=== PATIENT | female | born 1990 | race Caucasian/White ===

== ENCOUNTER 2016-06-20 00:02 | Inpatient (IN) | payer BC ==
[2016-06-20] MEDS ORDERED: LIDOCAINE HCL 50 ML VIAL PERI PRN (00:04)
[2016-06-20] MEDS ORDERED: ONDANSETRON HCL/PF 2 MG/ML VIAL IV PRN ×4 (00:04→16:40)
[2016-06-20] MEDS ORDERED: RINGERS SOLUTION,LACTATED 1,000 ML IV ONE ×3 (00:04→15:59)
[2016-06-20] MEDS ORDERED: OXYTOCIN/DEXTROSE 5%-WATER 30 UNITS/500 ML BAG IV ONE (00:04)
[2016-06-20] MEDS ORDERED: DEXTROSE 5%-LACTATED RINGERS 1,000 ML IV PRN (00:04)
[2016-06-20] MEDS: RINGERS SOLUTION,LACTATED 1,000 ML IV PRN ×2 (00:47→11:27)
[2016-06-20] MEDS ORDERED: BUPIVACAINE HCL/0.9 % NACL/PF 250 ML EP PRN (03:10)
[2016-06-20] MEDS ORDERED: NALOXONE HCL 1 MG/1 ML SYRG IV PRN (03:10)
[2016-06-20] MEDS ORDERED: fentaNYL CITRATE/PF 50 MCG/ML AMPUL IT SCH (03:15)
--- NOTE | 2016-06-20 03:39 | OR ---
Anesthesia Procedure Note - Anesthesia Procedure Note Narrative: 06/20/16 03:39 ANESTHESIA PROCEDURE NOTE Date of Procedure: 06/20/2016 Time of procedure: 07 18. Performed by: Sridhar Valdivia CRNA Channel Opener: None. Preprocedure diagnosis: Active labor. Post procedure diagnosis: Same. Procedure: Insertion of labor epidural. Indications: The patient is a 26 -year-old prima para female in active labor requesting labor epidural for pain management. Findings: See below. Details of the procedure: The patient was placed in a sitting position. Back was prepped with DuraPrep. Patient was then draped in a sterile fashion. Lidocaine 1% was infiltrated to the skin and subcutaneous tissues at the level of the L3 4 interspace. The epidural space was identified using a 18-gauge Tuohy needle with [id number] technique. 20 mcg fentanyl was given intrathecally using a 27 ga. spinal needle. Epidural catheter was inserted without difficulty. Negative test dose was elicited using 5 mL of 1.5% preservative-free lidocaine plus epinephrine 1 200,000. The epidural catheter was then taped and secured in place. EBL: Minimal. Fluids: N/A. Specimen: N/A. Post procedure condition: The patient tolerated the procedure well. No complications were noted. Thank you for this consultation. Canela CRNA
--- NOTE | 2016-06-20 09:10 | PN ---
Progess Note - Interim Narrative: 06/20/16 09:08 Subjective-patient is comfortable after epidural, feels some pressure Objective- SVE- 8/80/-1, amniotomy with clear fluid FHTs- 120s, moderate variability, early decelerations, accelerations [place]-every 2 minutes Assessment and plan- Labor- induction with Pitocin GBS status- negative Anticipate vaginal delivery Continue current plan of care.
[2016-06-20] MEDS ORDERED: OXYTOCIN 20 UNITS in RINGERS SOLUTION,LACTATED 1,000 ML IV ONE ×2 (14:34→15:59)
[2016-06-20] MEDS ORDERED: ceFAZolin SODIUM/DEXTROSE,ISO 2 GM in Premix Bag 1 BAG IV ONE (14:34)
--- NOTE | 2016-06-20 14:38 | PREOP NOTE ---
Preoperative Progress Note - Preoperative Changes Changes noted since H&P was completed.: Arrest of descent after 3 hours of pushing.
--- NOTE | 2016-06-20 14:55 | OR ---
Operative Report - Dictated Report Narrative: Operative report: 06/20/2016 Preoperative diagnosis: 40 weeks and 5 days, arrest of descent Postoperative diagnosis: Same Procedure: Primary low-transverse section Surgeon: Sheyla Reyes D.O. Jig Borer: Or staff Anesthesia: Epidural IV fluids: 1400 [place]ers Urine output: 500 Milliliters EBL: 400 Milliliters Findings: nl uterus, tubes, ovaries, male, cephalic, APGARS 9 & 9, 7lbs 2.8oz, 3257grams, delivered at 1553 Drains: Cao catheter to gravity Pathology: none Complications: None Condition: Stable The patient was taken to the operating room with IV fluids running and Cao catheter in place. She was placed in the dorsal supine position with a leftward tilt. She was prepped and draped in the normal sterile fashion. A Pfannenstiel skin incision was made with the scalpel 2 cm above the pubic symphysis. The subcutaneous tissue was dissected down to the fascia. The fascia was incised in the midline and extended laterally. The superior aspect of the fascia was grasped with Edilson clamps and the rectus muscles were dissected off the fascia using Montero scissors and blunt dissection. In a similar fashion, the inferior aspect of the fascia was grasped and the rectus muscles dissected off. The peritoneum was then entered and extended with good visualization of the bowel and bladder. The uterine incision was made in a low-transverse fashion using the scalpel. It was extended laterally in a blunt manner. The infant was found to be cephalic. The was then delivered atraumatically. The cord was clamped and cut. The was handed off to the waiting boiler control technician. Cord blood was then collected. The placenta was then delivered spontaneously. The uterus was cleared of all clots and debris. Uterine incision was reapproximated using 0 Vicryl in a running locked fashion. A second layer of 0 Vicryl was used to imbricate the uterine incision. Hemostasis was obtained. The peritoneum was then reapproximated using 3-0 Monocryl. The rectus muscles were inspected, cautery was used to obtain hemostasis. The fascia was then reapproximated with 0 Vicryl. The subcutaneous tissue was then irrigated. Bovie cautery was used to obtain hemostasis. The subcutaneous tissue was then reapproximated using 3-0 Monocryl. The skin was closed in a subcuticular fashion using 4-0 Monocryl. The incision was found to be hemostatic. Benzoin and Steri-Strips were then applied. Telfa and ABDs bandage was then placed. The patient tolerated the procedure well. Sponge, lap, needle, and instrument counts were correct throughout the entire procedure. The patient was taken to the recovery room in stable condition. History for MU Definition: * The number of deliveries resulting in a live the patient experienced prior to current hospitalization * The previous delivery of live twins or any live multiple gestation is considered one live event. *If primagravida or nulliparous is documented select zero for the number of previous live births. Live Events: 0
[2016-06-20] MEDS ORDERED: KETOROLAC TROMETHAMINE 30 MG/ML VIAL IV PRN (16:40)
[2016-06-20] MEDS ORDERED: SENNOSIDES 8.6 MG TABLET PO PRN (16:40)
[2016-06-20] MEDS ORDERED: SIMETHICONE 80 MG TAB.CHEW PO PRN (16:40)
[2016-06-20] MEDS ORDERED: oxyCODONE HCL/ACETAMINOPHEN 1 TAB TABLET PO PRN (16:40)
[2016-06-20] MEDS ORDERED: BISACODYL 10 MG SUPP.RECT RC PRN (16:40)
[2016-06-20] MEDS ORDERED: GLYCERIN/WITCH HAZEL LEAF 40 APPL BOX TP PRN (20:45)
[2016-06-20] MEDS ORDERED: BENZOCAINE/MENTHOL 81 SPRAY CAN TP PRN (20:45)
[2016-06-20] MEDS: oxyCODONE HCL/ACETAMINOPHEN 1 TAB TABLET PO PRN (21:39)
[2016-06-20] MEDS: ENOXAPARIN SODIUM 40 MG/0.4 ML SYRG SC SCH (21:40)
[2016-06-20] MEDS: IBUPROFEN 800 MG TABLET PO PRN (21:40)
[2016-06-20] MEDS: DOCUSATE SODIUM 100 MG CAPSULE PO SCH (21:40)
[2016-06-21] MEDS: oxyCODONE HCL/ACETAMINOPHEN 1 TAB TABLET PO PRN ×7 (01:37→23:59)
[2016-06-21] MEDS: IBUPROFEN 800 MG TABLET PO PRN ×3 (06:46→20:21)
--- NOTE | 2016-06-21 08:13 | PN ---
Progess Note - Interim Narrative: 06/21/16 08:12 Subjective: Patient is doing well, ambulating, voiding, tolerating by mouth. Minimal lochia. Pain controlled with medication. Objective: Vital signs stable General: no acute distress Abdomen: Soft, nondistended, diffusely tender, fundus firm Skin: Incision is clean, dry and intact Extremities: Minimal edema, nontender Assessment and plan: Postoperative day 1 Feeding: breast Pain: Controlled with by mouth medication Routine postoperative care.
[2016-06-21] MEDS: DOCUSATE SODIUM 100 MG CAPSULE PO SCH ×2 (10:23→21:43)
[2016-06-21] MEDS: ENOXAPARIN SODIUM 40 MG/0.4 ML SYRG SC SCH (21:43)
[2016-06-22] MEDS: IBUPROFEN 800 MG TABLET PO PRN ×4 (03:11→21:36)
[2016-06-22] MEDS: oxyCODONE HCL/ACETAMINOPHEN 1 TAB TABLET PO PRN ×6 (03:11→21:37)
[2016-06-22] MEDS: DOCUSATE SODIUM 100 MG CAPSULE PO SCH ×2 (09:19→21:36)
--- NOTE | 2016-06-22 11:17 | PN ---
Subjective - Date and Time Seen Date: 06/22/16 Subjective Narrative: Post op day 2 from primary c/s for failure to descent. Has moderate headache with activity, controlled with medications. Possible due to spinal headache from epidural x 1 and spinal x 2. . normal lochia. incision pain controlled. ambulating well. Objective - Vitals Vitals: Last Vital Signs Temp 36.6 C 06/22/16 08:50 Pulse 93 06/22/16 08:50 Resp 20 06/22/16 08:50 BP 145/81 06/22/16 08:50 Pulse Ox 100 06/22/16 08:50 - Exam Constitutional: Present: Alert, Oriented x3, Cooperative Respiratory: Present: no respiratory distress Cardiovascular/Chest: Present: normal peripheral pulses Abdomen: Present: soft, nondistended, other - fundus firm, incision intact. Extremity: Present: normal range of motion, no pedal edema, no calf tenderness Skin Exam: Present: normal color, warm/dry, no cyanosis Eye contact: Present: cooperative, good eye contact, normal speech Cauti Physician Documentation - Urinary Catheter Management Urethral (Cao) Date of Insertion: 06/20/16 Time of Insertion: 04:35 Date of Removal: 06/21/16 Time of Removal: 03:42 Assessment/Plan Plan Narrative: A: post op day 2, s/p primary c/s for failure to descent, with headache ( possible spinal headache) Plan: routine post op care. pain management for headache and will notify anesthesia for possible spinal headache. ambulation encourage. Ivon Ewing MD
--- NOTE | 2016-06-22 13:27 | OR ---
Anesthesia Pre Procedure Eval Date of Service: 06/22/16 Pre Procedure Evaluation: Last Vital Signs Temp 36.6 C 06/22/16 08:50 Pulse 93 06/22/16 08:50 Resp 20 06/22/16 08:50 BP 145/81 06/22/16 08:50 Pulse Ox 100 06/22/16 08:50 O2 Oxygen Delivery Method Room Air Anesthesia Pre Procedure Evaluation DATE: 06/22/2016 TIME: 1305 INDICATIONS: Post- section complaints of headache PAST MEDICAL HISTORY: Ms. Walker was in labor and received a CSE for labor analgesia. She eventually had a section with a spinal, spinal was repeated prior to the start of the procedure. Yesterday afternoon and today she was complaining of a headache and I was consulted for evaluation considering a potential postdural puncture headache. EXAM: Heart regular; lungs clear ASSESSMENT OF MEDICAL STATUS: Mrs. Walker is currently sitting in the upright position with no undue stress. She has been up to the bathroom and up primarily within the room. Her headache is no different regardless of position and is perhaps slightly better as we spoke this afternoon. The headache itself seemed to be global and perhaps sharp at times. She cannot identify any maneuvers or interventions that have made the headache any better or worse. She did admit that she would normally have 2 cups of coffee a day and has had none since her admission. I suspect this is probably the largest underlying factor for her current headache. She did have Mountain Dew earlier today and she does feel that her headache is somewhat better. I explained the etiology and normal classic symptoms of spinal headache, and she does not appear to have that issue. She was reassured to continue on with her activities of daily living and headache patient most likely resolve. Also, if there is an increase in intensity and it becomes postural in nature that we should be notified as it is possible to develop a spinal headache some time after the actual event. PLANNED PROCEDURE: No further procedure is indicated at this time, refer to above comments as to resolution of headache. Home Medications: HOME MEDICATIONS Vit#96/Ferrous Fum/FA [ S] 1 tab PO DAILY 06/20/16 [Last Taken 06/19/16] Benzocaine/Menthol [Dermoplast [place]] 1 spray TP PRN PRN #0 can 06/21/16 [Last Taken Unknown] Docusate Sodium [Colace] 100 mg PO BID capsule 06/21/16 [Last Taken Unknown] Glycerin/Witch Merlyn Archbold [Tucks Medicated Pads] 1 appl TP PRN PRN #0 box [Last Taken Unknown] Ibuprofen [Motrin] 800 mg PO Q6H PRN #0 tablet 06/21/16 [Last Taken Unknown] oxyCODONE HCL/ACETAMINOPHEN [Percocet 5 MG/325 MG] 1 tab PO QID PRN #20 tablet 06/21/16 [Last Taken Unknown] oxyCODONE HCL/ACETAMINOPHEN [Percocet 5 MG/325 MG] 2 tab PO QID PRN #10 tablet 06/21/16 [Last Taken Unknown]
[2016-06-22] MEDS: ENOXAPARIN SODIUM 40 MG/0.4 ML SYRG SC SCH (21:36)
[2016-06-23] MEDS: oxyCODONE HCL/ACETAMINOPHEN 1 TAB TABLET PO PRN ×4 (01:23→13:49)
[2016-06-23] MEDS: IBUPROFEN 800 MG TABLET PO PRN ×2 (03:37→10:22)
[2016-06-23] MEDS: DOCUSATE SODIUM 100 MG CAPSULE PO SCH ×2 (06:46→10:25)
--- NOTE | 2016-06-23 10:36 | PN ---
Subjective - Date and Time Seen Date: 06/23/16 Subjective Narrative: Post op day 3, s/p primary c/s for failure to descent. no complaints today. headache is much better. . normal lochia. incision pain controlled. ambulating well. Objective - Vitals Vitals: Last Vital Signs Temp 36.9 C 06/23/16 06:30 Pulse 82 06/23/16 06:30 Resp 20 06/23/16 06:30 BP 123/65 06/23/16 06:30 Pulse Ox 100 06/23/16 06:30 - Exam Constitutional: Present: Alert, Oriented x3, Cooperative Respiratory: Present: no respiratory distress Cardiovascular/Chest: Present: normal peripheral pulses Abdomen: Present: soft, nontender, nondistended, other - fundus firm, incision intact with steri strips. Extremity: Present: normal range of motion, no pedal edema, no calf tenderness Skin Exam: Present: normal color, warm/dry, no cyanosis Eye contact: Present: cooperative, good eye contact, normal speech Cauti Physician Documentation - Urinary Catheter Management Urethral (Cao) Date of Insertion: 06/20/16 Time of Insertion: 04:35 Date of Removal: 06/21/16 Time of Removal: 03:42 Assessment/Plan Plan Narrative: A: POD#3, s/p c/s, stable and well. Plan: will discharge home today. discharge instructions given. Ivon Ewing MD
[2016-06-23 15:06] VITALS: BP 118/70
[2016-06-23] MEDS ORDERED: ceFAZolin SODIUM 1 GM VIAL IV ONE (15:38)
== END 2016-06-23 14:30 | disposition home or self-care (01) | DRG 766 ==
LOC: OB 00:02 → MS 06-22 10:13
PROVIDERS: ADMIT Obstetrics & Gynecology Gynecologic Oncology; ATTEND Obstetrics & Gynecology Gynecologic Oncology
PROC: 4A1HXCZ Monitoring of Products of Conception, Cardiac Rate, External Approach (ICD-10-PCS; 2016-06-20)
PROC: 3E033VJ Introduction of Other Hormone into Peripheral Vein, Percutaneous Approach (ICD-10-PCS; 2016-06-20)
PROC: 10D00Z1 Extraction of Products of Conception, Low, Open Approach (ICD-10-PCS; principal; 2016-06-20 15:00)
DX: O63.1 Prolonged second stage (of labor) (principal); O48.0 Post-term pregnancy; O32.4XX0 Maternal care for high head at term, not applicable or unspecified; Z3A.41 41 weeks gestation of pregnancy; Z37.0 Single live birth